=== PATIENT | female | born 1960 | race Caucasian/White ===

== ENCOUNTER 2016-06-02 11:00 | Day surgery (SDC) | payer OTHER ==
[~2016-06-02 11:00] MED LIST: Lidocaine Topical 2% 30 mL Jelly ONE
== END 2016-06-02 23:59 | disposition home or self-care (01) ==
LOC: END 11:00
PROVIDERS: ATTEND Surgery
DX: K21.9 Gastro-esophageal reflux disease without esophagitis (principal)

== ENCOUNTER 2016-10-06 05:39 | Day surgery (SDC) | payer OTHER ==
[~2016-10-06] VITALS: Ht 167.6 cm; Wt 66.1 kg
[2016-10-06] VITALS (16 sets, daily range): BP systolic 117–176; BP diastolic 60–96; PULSE 72–105; RESP 14–20; O2SAT 94–99
[~2016-10-06 05:39] MED LIST changes: +ALBU8.5H2 INHALATION; +CeFAZolin 2 Gm/50 mL D5W IV Premix IV SCH; +DIAZ2TAB2 PO; +DIAZ5TAB3 PO; +ESTR1TAB24 PO; +HYDR12.55 PO; -Lidocaine Topical 2% 30 mL Jelly ONE; +MTC5T PO; +NICO1PAT40 TD; +OMEP20TA86 PO; +ONDA-53 PO; +OXYC20TA4 PO; +OXYC80TA PO; +RANI150C4 PO
[2016-10-06] MEDS ORDERED: Remifentanil 1 mg/3 mL Inj ONE (05:40)
[2016-10-06] MEDS ORDERED: Succinylcholine Chloride 20 mg/mL 5 mL Inj ONE (05:40)
[2016-10-06] MEDS ORDERED: HYDROmorphone 1 mg/mL Inj ONE (05:40)
[2016-10-06] MEDS ORDERED: MetoCLOpramide 5 mg/mL 2 mL Inj ONE (05:40)
[2016-10-06] MEDS ORDERED: Propofol 10,000 mCg/mL 20 mL Inj ONE (05:40)
[2016-10-06] MEDS ORDERED: Rocuronium 10 mg/mL 5 mL Inj ONE (05:40)
[2016-10-06] MEDS ORDERED: Ketamine 10 mg/mL 20 mL Inj ONE (05:40)
[2016-10-06] MEDS ORDERED: Dexamethasone 4 mg/mL Inj ONE (05:40)
[2016-10-06] MEDS ORDERED: fentaNYL-PF 50 mCg/mL 2 mL Inj ONE (05:40)
[2016-10-06] MEDS ORDERED: Phenylephrine/NS 100 mCg/mL 10 mL Syringe IVPUSH ONE (05:40)
[2016-10-06] MEDS: Lactated Ringer's 1,000 ML IV SCH ×2 (05:53→07:30)
[2016-10-06] MEDS: CeFAZolin 2 Gm/50 mL D5W IV Premix IV SCH ×2 (06:00→07:58)
[2016-10-06] MEDS ORDERED: Bupivacaine-MPF 0.5% 30 mL Inj INFILTRATE ONE (07:31)
[2016-10-06] MEDS ORDERED: Lactated Ringer's 500 ML IV PRN (08:29)
[2016-10-06] MEDS ORDERED: Lactated Ringer's 1,000 ML IV SCH (08:29)
--- NOTE | 2016-10-06 08:29 | PCM.HPANE ---
Patient Data Surgeon Admitting Provider: Attending Provider:Adri Moya MD Primary Care Physician:Yusef Sheffield MD Other Provider:[facility] Anesthesia Reason for Visit GERD Ht/WT & BMI Height (Feet): 5 Height (Inches): 6 Weight (Kilograms): 67.3 Body Mass Index 23.00 Allergies Coded Allergies: Contrast Media (Unverified Allergy, Unknown, 10/04/16) ENTERED FROM UNCODED ALLERGIES bupropion (Verified Allergy, Unknown, 09/28/16) codeine (Verified Allergy, Unknown, 09/28/16) epinephrine (Unverified Allergy, Unknown, 10/04/16) ENTERED FROM UNCODED ALLERGIES naproxen (Verified Allergy, Unknown, seizures, 09/28/16) Uncoded Allergies: EPINEPHRINE (Allergy, Unknown, seizures, 09/28/16) IV CONTRAST IODINE (Allergy, Unknown, seizures, 09/28/16) Past Anesthesia History Anesthesia History: Positive for:: Anesthesia Reactions (relaxation med did not work- could not breathe- fought intubation), Denies:: Abnormal Airway, Difficult Intubation, Fam Anesthesia Reaction Diabetes History Hx Diabetes?: No MRSA MRSA: No Medications Hypertension Medication: No Home Meds Incl Beta John: No Reported Medications Ranitidine 150 Mg [id number] Mg PO BID Ref 0 09/28/16 Albuterol HFA (Proair HFA)8.5 Gm Hfa.aer.ad2 Puffs INHALATION Q4H PRN For Shortness of Breath #1 INHALER 09/28/16 Ondansetron 4 Mg Tablet8 Mg PO Q12H PRN For Nausea 09/28/16 Omeprazole 20 Mg Tablet.dr20 Mg PO DAILY 09/28/16 Nicotine (Nicoderm Cq 14 mg/24 hr)1 Each Patch.td241 Each TD DAILY 14 Days Ref 0 09/28/16 Metoclopramide 5 Mg Tablet5 Mg PO BID Ref 0 09/28/16 Hydrochlorothiazide 12.5 Mg Lwtoid39.5 Mg PO DAILY 30 Days Ref 0 09/28/16 Estradiol 1 Mg Tablet1 Mg PO DAILY Ref 0 09/28/16 Diazepam 5 Mg Tablet5 Mg PO BID PRN For Anxiety Ref 0 09/28/16 oxyCODONE 20 Mg Mafgna47 Mg PO BID PRN For Pain Ref 0 pt takes approx 60mg daily 09/28/16 Oxycodone ER (Oxycontin)80 Mg Tab.er.12h80 Mg PO TID pt takes approx 240mg daily 09/28/16 Discontinued Reported Medications Omeprazole 20 Mg Tablet.dr20 Mg PO DAILY 09/28/16 Diazepam 2 Mg Tablet2 Mg PO TID PRN For Anxiety Ref 0 09/28/16 History History of ENT Problems?: Yes HEENT History: Positive for:: Hearing Problem Sinus Problem (remote hx of right sided abscess with sinus collapse) Denies:: Abnormal Airway Cataracts Difficult Intubation Dysphagia Glaucoma Denture Type: Partial- Upper Teeth Condition: Within Normal Limits Hx of Heart Problems?: Yes Cardiovascular History: Positive for:: Heart Murmur (hx of murmur "for many years- no one has worked up") Irregular Heartbeat (anxious ) Denies:: Abdominal Aortic Aneurism Atrial Fibrillation Chest Pain Coronary Artery Disease Edema Hypertension Hx of Respiratory Problem?: Yes Respiratory History: Positive for:: Asthma COPD Dyspnea (short of breath- cannot climb stairs - ) Use of Inhalers / NEBS Denies:: Emphysema Oxygen Administration Pneumonia Tuberculosis Use of C-PAP Machine Hx Neurologic Problems?: Yes Neurological History: Positive for:: Headaches (daily ) Denies:: CVA Multiple Sclerosis Parkinson's Disease Seizures (had convulsions with epinephrine) Hx of GI Problems?: Yes Hx of Problems?: Yes Genitourinary History: Denies:: Kidney Stones Urinary Tract Infection Other Pertinent History: hx of defect- needed ureteroscopy with stents Female Hx: Positive for:: Problems with Breasts? (breast biopsy, lumpectomy- benign) Denies:: Currently Skin History: Denies:: History Skin Disorders? Pressure Ulcers Hx Musculoskeletal Problems?: Yes Musculoskeletal History: Positive for:: Back Injury (hx of lumbar spinal surgery x 6 ) Fibromyalgia Osteoarthritis Denies:: Degenerative Joint Joint Replacement Myasthenia Gravis Hx of Psycho/Social Problems?: Yes Psycho Social History: Positive for:: Anxiety Hx Surgeries?: Yes (multiple orthopedic, spinal, lap wally, appe, hyst) Hx Any Other Health Problems?: Yes Other History: Denies:: Cancer Thyroid Disease History Blood Transfusions: Positive for:: Accept Blood Products? Denies:: Blood Transfusions Hx Diabetes: No Hx Alcohol Use: NoHx Substance Use: NoHave You Smoked inLast 12 mo: Yes ( recent quit- 2 pack day at highest, wearing nicotine patch) Stop/Bang S-Snoring: Do You Snore Loudly: No T-Tired: feel tired, fatigued: No O-Obsered: Observed not breath: No P-Blood Pressure: treated: No B- Body Mass Index > 35 kg/m2: No A- Age over 50: Yes N- Neck Large Circumference: No G- Gender Male: No JAYSON Total Score: 1 JAYSON Risk Assessment: Low Risk, <3 Yes Risk Assessment Category Category 1A: Patient has history of documented sleep apnea, and HAS NOT received any narcotic, sedative or anesthesia administration during this stay. Category 1B: Patient has history of documented sleep apnea, and HAS received any narcotic , sedative or anesthesia administration during this stay Category 2: Patient has SUSPECTED Obstructive Sleep Apnea, and HAS received any narcotic , sedative or anesthesia administration during this stay. Category 3: Patient has SUSPECTED Obstructive Sleep Apnea and HAS NOT received narcotic, sedative or anesthesia administration during this stay. Category 4: Outpatient in Procedural Areas with known sleep apnea or who screen positive for High Risk via the STOP/BANG questionnaire. Exam Exam Vital Signs Vital Signs Date Time Temp Pulse Resp B/P Pulse Ox O2 Delivery O2 Flow Rate FiO2 10/06/16 06:07 36 76 16 117/67 95 Room Air General Appearance: Alert HEENT/AIRWAY: MP 2, Neck Movement (from, 3 fb) Lungs: Clear to Auscultation Heart: Regular Rate/Rhythm Meds/Labs/Diagnostics Admission Meds Current Medications Lactated Ringer's 1,000 ml @ 120 mls/hr Q8H20M IV Last administered on 07:30; Start 10/06/16 at 05:00; Stop 10/06/16 at 13:19 Cefazolin Sodium/ Dextrose/Premix (Ancef Inj/IV Premix) 50 ml @ 100 mls/hr PREOP IV Last administered on 10/06/16 07:58; Start 10/06/16 at 06:00; Stop at 17:00 Bupivacaine HCl (Sensorcaine-MPF 0.5% Inj) 30 ml STK-MED ONCE INFILTRATE Last administered on 10/06/16 07:31; Start 10/06/16 at 07:31; Stop 10/06/16 at 08:15 ; Status DC Plan Impression Patient chart reviewed, patient interviewed and anesthestic plan with risks, benefits, and alternatives discussed, and informed consent obtained. NPO per Anesth. Guidelines: Yes ASA Physical Status: ASA3 Severe Disease Anesthetic Plan: GA Bene/Risks/Altern/Consents: Yes HP Complete Prior to Induction: Yes Other Discussed GETA. Discussed likely difficulty with post-op pain control given her current opioid usage. All questions were answered and she agrees to proceed. Stanley Valdez MD Oct 06, 2016 08:29
[2016-10-06] MEDS ORDERED: Phenylephrine 10,000 mCg/mL Inj IVPUSH PRN (08:30)
[2016-10-06] MEDS ORDERED: Dexamethasone 4 mg/mL Inj IVPUSH PRN (08:30)
[2016-10-06] MEDS ORDERED: EPHEDrine Sulfate 50 mg/mL Inj IVPUSH PRN (08:30)
[2016-10-06] MEDS ORDERED: MetoCLOpramide 5 mg/mL 2 mL Inj IVPUSH PRN ×2 (08:30→10:55)
[2016-10-06] MEDS ORDERED: Ondansetron 2 mg/mL 2 mL Inj IVPUSH PRN ×2 (08:30→10:55)
[2016-10-06] MEDS ORDERED: ProchlorPERazine 5 mg/mL 2 mL Inj IVPUSH PRN (10:55)
[2016-10-06] MEDS ORDERED: oxyCODONE 1 mg/mL 5 mL Liquid PO PRN (10:55)
--- NOTE | 2016-10-06 10:56 | PCM.SURGOP ---
Surgical Operative Report Date of Service: Oct 06, 2016 Pre Operative Diagnosis Hiatal hernia associated with gastroesophageal reflux disease Post Operative Diagnosis Hiatal hernia associated with gastroesophageal reflux disease Procedure: Laparoscopic hiatal hernia repair with Toupet fundoplication Surgeon and Elementary Spanish Teacher: Surgeon: Adri Moya MD Assistants: Marcellus Albarado M.D. R3; Sapphire [place], MS3 Indication for Procedure This is a 56-year-old woman who presented with symptoms of acid brash, nausea, and epigastric discomfort. I first met her she was taking large doses of OxyContin and oxycodone for fibromyalgia. Initial workup included a gastric emptying study to rule out gastroparesis. She then underwent a full workup which demonstrated severe reflux including a DeMeester score of 51, normal esophageal motility, a small hiatal hernia, without other pathology identified on endoscopy. Findings: 1. Small hiatal hernia 2. 270 posterior fundoplication Procedure Details The patient was brought to the operating room and placed in supine position. General endotracheal anesthesia was smoothly induced. A warming blanket and SCDs were placed. The patient was repositioned into low lithotomy with the left arm tucked. Antibiotics were infused. The operative field was prepped and draped in sterile fashion. A pause was performed to confirm the correct patient, procedure, and site. The abdomen was accessed using a Veress needle in the left upper quadrant after controlling the fascia and was insufflated. An 11 mm Optiview port was inserted and intraperitoneal insufflation began. A 5 mm port was then placed in the mid abdomen just to the left of midline. The 5 mm port was placed in the mid abdomen laterally on the left. A 5 mm flexible liver retractor was placed through a 5 mm port in the right lateral abdomen. A final 5mm trocar was placed in the right upper quadrant. A small hiatal hernia was seen. The stomach was identified and the phrenogastric ligament was taken down sharply. The short gastrics were then taken down using LigaSure device. After this portion of the procedure, the small amount of oozing was identified near the superior tip of the spleen. A piece of Surgicel was placed in that location and it was carefully observed for several minutes. It was hemostatic throughout the rest of the case. Dissection proceeded at the hiatus starting on the left. The mediastinum was entered on the left. Both vagi were identified and preserved. The gastrohepatic ligament was then divided up to the right uriel and the right sided dissection was completed with care taken to preserve the entire uriel. Once the esophagus was dissected circumferentially, the hiatal hernia was reduced and a Linda drain was then placed around the esophagus at the gastroesophageal junction for retraction to facilitate a more proximal esophageal dissection. This proceeded proximally until there was 5 cm of intra- abdominal esophagus. 3 interrupted 2-0 silk stitches were placed in the posterior crura to reapproximate them without tension. Attention was turned to the to Toupet fundoplication. A Toupet was chosen due to data demonstrating that it is equivalent for postoperative reflux but improves postoperative dysphagia and gas bloat, and the risk of bougie placement is avoided. A marking stitch was placed on the posterior fundus, 3 cm distal to the gastroesophageal junction and 2 cm posterior to the greater curvature. This was brought around posteriorly to align the geometry of the fundoplication. The first stitch was placed in the fundus just proximal to the marking stitch, to the esophagus at and 11 o'clock position, and to the right uriel at the 11 o'clock position. The second stitch was placed from the posterior aspect of the right fundoplication to the bilateral crura posteriorly. The [place] drain was removed. Two additional stitches were then placed from the right side of the fundoplication to an 11 o'clock position on the esophagus. Care was taken to avoid inclusion of the anterior vagus in the stitches. The marking stitch was removed. Attention was then turned to the left side of the wrap. An appropriate position on the fundus was chosen to create symmetrical geometry of the fundoplication. The first stitch on the left was placed from the wrap to the esophagus to the uriel, again with care taken to avoid inclusion of the anterior vagus in the stitch. Two additional sutures were then placed from the wrap to the esophagus, each 1 cm distal to the previous one. A final coronal stitch was placed from the left posterior fundoplication to the posterior aspect of the left uriel. Once the procedure was complete, the 11 mm port site in the left mid abdomen was closed with an interrupted 2-0 PDS using a fascial closure device. The remaining ports were removed under direct vision and the abdomen was desufflated. 0.5% Marcaine with epinephrine was infused at all port sites. Skin was closed with 4-0 Monocryl. Sterile dressings were placed. All sponge, instrument, and needle counts were correct at the end of the procedure. The patient was awakened from general anesthesia and taken to the postoperative care unit in good condition. Complications There were no periprocedural complications identified. Surgical Specimen Removed: No Specimen sent to Pathology: No Anesthetic Plan: GA Grafts, Implants: None Output, Estimated Blood Loss: 10 (ml) Blood Administration during pratt: No Adri Moya MD Oct 06, 2016 10:56
[2016-10-06 11:30] LABS: Mean Corpuscular Hemoglobin 30.2 pg (27.0-35.0); Mean Corpuscular Volume 88.9 fL (81-100)
[2016-10-06] MEDS: fentaNYL-PF 50 mCg/mL 2 mL Inj IVPUSH PRN ×2 (11:31→11:48)
--- NOTE | 2016-10-06 11:54 | PCM.ANEP1 ---
Post Anesthesia PACU Phase 1 Assessment Vital Signs Vital Signs Date Time Temp Pulse Resp B/P Pulse Ox O2 Delivery O2 Flow Rate FiO2 10/06/16 11:49 85 17 148/68 98 Nasal Cannula 3 10/06/16 11:30 84 14 150/76 96 Nasal Cannula 4 10/06/16 11:20 81 16 147/72 98 Nasal Cannula 4 10/06/16 11:05 91 15 145/67 98 Nasal Cannula 4 10/06/16 11:00 92 16 167/81 99 Simple Mask 8 10/06/16 10:55 85 15 163/77 99 Simple Mask 8 10/06/16 10:50 36.7 94 15 171/81 99 Simple Mask 8 10/06/16 06:07 36 76 16 117/67 95 Room Air Anesthetic Administered: GA Level of Alertness: Awake, talking DE LEON's with Equal Strength: Yes Pain: Yes Nausea or Vomiting: No CV Function & Hydration Stable: Yes Airway Device: Oxygen Delivery: Simple Mask Lungs: Clear to Auscultation Dermatome Level: Full Sensation PACU Phase 2 Assessment Complications: No Follow up Care: N/A Patient Instructions Provided: N/A Stanley Valdez MD Oct 06, 2016 11:54
[2016-10-06] MEDS: HYDROmorphone 1 mg/mL Inj IVPUSH PRN ×4 (11:57→23:37)
[2016-10-06] MEDS: Acetaminophen 32.5 mg/mL 20 mL Liquid PO SCH ×2 (12:00→17:29)
[2016-10-06] MEDS ORDERED: Albuterol 2.5 mg/3 mL Inhalation Solution NEB PRN (12:50)
[2016-10-06] MEDS: Dextrose 5% Lactated Ringer's 1,000 ML IV SCH (13:11)
[2016-10-06] MEDS: oxyCODONE ER 40 mg ER12 Tablet PO SCH ×2 (15:15→20:13)
[2016-10-06] MEDS: Heparin 5,000 Unit/mL Inj SUBQ SCH (18:11)
[2016-10-07] MEDS: Dextrose 5% Lactated Ringer's 1,000 ML IV SCH ×2 (01:43→11:55)
[2016-10-07] MEDS: Heparin 5,000 Unit/mL Inj SUBQ SCH ×2 (02:06→08:24)
[2016-10-07] MEDS: HYDROmorphone 1 mg/mL Inj IVPUSH PRN ×2 (03:07→08:28)
[2016-10-07 04:46] VITALS: BP 177/77; PULSE 72; RESP 18; O2SAT 95
[2016-10-07] MEDS: oxyCODONE ER 40 mg ER12 Tablet PO SCH ×2 (05:34→13:34)
[2016-10-07] MEDS: Acetaminophen 32.5 mg/mL 20 mL Liquid PO SCH ×3 (06:00→12:00)
[2016-10-07 06:10] LABS: Mean Corpuscular Volume 88.7 fL (81-100)
--- NOTE | 2016-10-07 06:17 | NUR ---
Activity/FC Pt has has c/o pain this shift to her abdomen 6 to 9 out of 10. Pt receiving PO OxyContin ER -whole, Oxycodone PO crushed, and IV Dilaudid to help alleviate pain. Pt gets anxious and tearful when pain levels are 9 out of 10. Encouraging pt to move in bed and to get OOB this morning to help relieve some of her gas/cramping pressure. FC removed at 0610 this morning. Pt tolerated very well, and happy to have it out. Reminded pt to drink fluids and the need to increase her mobility. 5 lap sites are intact, very minimal spotting. Abdomen is round and soft to palpation, bowel tones are present in all 4 quads. Wheezing lung sounds to right lung this morning, pt had been tearful prior to assessment.
--- NOTE | 2016-10-07 08:01 | PCM.PNSURG ---
Subjective Date of Service: Oct 07, 2016 Visit Information: Reason for Visit GERD Surgery/Surgery Date HERNIA REPAIR 10/06/16 Post-Op Day # Date of Admission: Hospital Day # Subjective: Patient is resting comfortably in bed. She states that she has been ambulating independently and is voiding. She is tolerating liquids. Her pain is controlled. Postop General: No Complaints Gastrointestinal: No N/V Pain Management: PO, IV Push Objective Objective Abdomen is soft, nondistended, appropriately tender. Her incisional sites are without erythema but with a small amount of bloody oozing that has stopped. Vital Sign- Last 8 Hours Date Time Temp Pulse Resp B/P Pulse Ox O2 Delivery O2 Flow Rate FiO2 10/07/16 06:06 Supplement Oxygen 10/07/16 04:46 36.6 72 18 177/77 95 Nasal Cannula 1.00 Intake and Output- Last 8 Hour 10/07/16 Cumulative From/Thru 07:00 09/28/16 14:47 - 10/07/16 05:40 Intake Total 650 ml 3220 ml Output Total 2100 ml 4320 ml Balance -1450 ml -1100 ml Intake Oral 650 ml 1268 ml IV Total 1952 ml Output Urine Total 2100 ml 4300 ml Estimated Blood Loss 20 ml # Voids 0 # Bowel Movements 0 0 General: Alert, Oriented X3, Cooperative Neck: Full Range of Motion Lungs: Normal Air Movement Heart: Exam Unremarkable Abdomen: Soft, Appropriately tender Result Diagram: 10/07/16 0520 10/07/16 0520 Assessment & Plan Impression Postop day 1 status post Laparoscopic hiatal hernia repair with Toupet fundoplication-convalescing appropriately -Advance diet to full liquids -Ensure that all medications are crushed or given as elixir form except for home OxyContin -Check in with the patient around noon, if she has no nausea or vomiting or difficulty swallowing, anticipate discharge this afternoon. I examined this patient and I agree with the note as dictated above. Adri Moya MD Problems: Norman Bobby DO Oct 07, 2016 08:01 Adri Moya MD Oct 07, 2016 16:38
[2016-10-07 09:07] VITALS: BP 138/79; PULSE 69; RESP 16; O2SAT 92
[2016-10-07 09:16] VITALS: PULSE 65; RESP 18; O2SAT 92
--- NOTE | 2016-10-07 12:23 | PCM.DICHF ---
CHF Discharge Instructions Dates of Hospitalization Date of Hospital Admission Providers Admitting Physician: Primary Care Physician: Yusef Sheffield MD Attending Physician: Adri Moya MD Diagnosis at Time of Discharge Labs Ejection Fraction Laboratory Tests Test Range/Units 10/07/16 05:20 Sodium Level 134-144 mEq/L 140 Potassium Level 3.5-5.2 mEq/L 3.5 Chloride Level 97-108 mEq/L 103 Carbon Dioxide Level 18-29 mmol/L 24 Blood Urea Nitrogen 6-24 mg/dL 5 Creatinine 0.57-1.00 mg/dL 0.54 Estimat Glomerular Filtration Rate >59 mL/min 167 Glucose Level 60-99 mg/dL 98 Calcium Level 8.5-10.1 mg/dL 9.3 Discharge Medications Other Medication Instructions You have received instructions on the medications your physician has prescribed at discharge. A list of these medications has been provided to you. Keep this and a list of all current medications with you. Keep the dates when you received the Flu and Pneumococcal (Pneumonia) Vaccines. Last known date of receiving Flu Vaccine 11/2015 Last known date of receiving Pneumococcal (Pneumonia) Vaccine Diet Diet Instructions CHF Low Salt diet ( 2 grams or less sodium/day) Choose foods and drinks with low or no salt. Remove salt shaker from the table. Read Nutritional Facts labels. Weight Monitoring 1. Weigh yourself every day at the same time and write it down. 2. Take your weight log to your doctor visits. 3. Call your doctor if you gain 3-5 pounds over 2-3 days. 4. Your weight today is 145.72 lbs. Additional Instructions Smoking--Tobacco Use If you smoke, you are strongly encouraged to stop. If you have recently quit smoking, CONGRATULATIONS. For further information to stop smoking or to remain smoke-free, Report or call your Doctor REPORT TO YOUR DOCTOR OR SEEK MEDICAL ATTENTION: *Shortness of breath or have more difficulty breathing. *Swelling of your feet, ankles, hands or abdomen. *Feeling tired with normal activity or experiencing dizziness or fainting. *Trouble sleeping or waking up feeling short of breath or coughing. *Chest pain or pressure. *Weight gain of 3-5 pounds over 2-3 days. *Inability to take medications or follow treatment plan Heart Attach warning signs HEART ATTACK WARNING SIGNS * Chest discomfort. *Discomfort or pain in one or both arms, back, neck, jaw or stomach. *Shortness of breath. *Breaking out in a cold sweat, nausea, or lightheadedness. If you're having heart attack warning signs: CALL . DON'T WAIT MORE THAN A FEW MINUTES - 5 MINUTES AT MOST - TO CALL . Brandt Rodriguez PA-C Oct 07, 2016 12:23
--- NOTE | 2016-10-07 12:53 | PCM.DISURG ---
Surgical Discharge Instruction Date of Service Oct 07, 2016 Dates of Hospitalization Date of Hospital Admission Providers Admitting Physician: Primary Care Physician: Yusef Sheffield MD Attending Physician: Adri Moya MD Discharge Diagnosis Discharge Diagnosis Primary Diagnoses: 1. Hiatal hernia associated with gastroesophageal reflux disease 2. Status post laparoscopic hiatal hernia repair with Toupet fundoplication Other Medical & Surgical History: Allergic rhinitis Anxiety History of endoscopy Family history of diabetes Family history of ovarian cancer Fibromyalgia Migraine headaches Lumbar spinal stenosis Osteoarthritis History of multiple lumbar surgeries Menopausal syndrome History of colonoscopy History of shoulder impingement syndrome History of chronic narcotic pain medication Possible chronic pain syndrome Post Operative diagnosis Same as above Diet Discharge Diet: Other (full liquid diet for 2 weeks) Activity Discharge Activity-General: Balance rest and activity, No lifting >15 pounds for 2 weeks, Other (Try to walk regularly do not overdo.) Dressing and Incisional Care Dressing Care: Allow Steri Stripes to fall off (on their own & remove in 1 weeks) Hygiene: May shower, DO NOT soak incision under water Additional Instructions Discharge Instructions Precautions to avoid nausea &/or vomiting Additional Instructions 1. Crush oxycodone in applesauce for breakthrough pain. 2. Do not crush OxyContin. 3. Take other pills in liquid form or crush. Follow Up Plan Follow-up Provider (F9): Adri Moya MD Follow-up appointment: Weeks (2) Call your provider for: Fever, Chills, Shortness of breath, Increasing abdominal pain, Nausea, Vomiting, Wound redness, Increasing wound pain, Warmth to touch, Discharge @ incision, pus discharge Brandt Rodriguez PA-C Oct 07, 2016 12:53
--- NOTE | 2016-10-07 13:01 | NUR ---
NUTRITION CONSULT Diet education completed following reapir of hiatal hernia with toupet fundoplication. Reviewed full liquid diet with pt and SO in detail. Hdts provided.
[2016-10-07 13:07] VITALS: BP 143/80; PULSE 80; RESP 18; O2SAT 95
[2016-10-07] MEDS ORDERED: OXYC-474 PO (13:19)
[2016-10-07] MEDS ORDERED: ONDA8TAB7 PO (13:21)
--- NOTE | 2016-10-07 13:25 | PCM.DC.SUR ---
Discharge Summary Date of Service: Oct 07, 2016 Date of Hospital Admission: 10/06/2016 Date of Operation(s): 10/06/2016 Date of Discharge: 10/07/2016 Diagnosis at Time of Discharge Primary Diagnoses: 1. Hiatal hernia associated with gastroesophageal reflux disease 2. Status post laparoscopic hiatal hernia repair with Toupet fundoplication Other Medical & Surgical History: Allergic rhinitis Anxiety History of endoscopy Family history of diabetes Family history of ovarian cancer Fibromyalgia Migraine headaches Lumbar spinal stenosis Osteoarthritis History of multiple lumbar surgeries Menopausal syndrome History of colonoscopy History of shoulder impingement syndrome History of chronic narcotic pain medication Possible chronic pain syndrome Problems: Operation Laparoscopic hiatal hernia repair with Toupet fundoplication Brief History and Physical: This is a 56-year-old woman who I have met twice before with gastroesophageal reflux disease. Recall that she has a history of BMI 22.7, on 240 mg daily of OxyContin and 61 g daily of oxycodone for fibromyalgia, who presented to my office back in March for consultation. Her primary symptoms are acid brash, nausea, and epigastric discomfort. Full workup revealed severe reflux including DeMeester score of 51.2 with 248 episodes of reflux, with significant worsening of her symptoms when she was off omeprazole. She has a small hiatal hernia with normal esophageal peristalsis. Because of nausea and her narcotic use aorta to gastric imaging study which was normal. When Dr. Moya & the patient last met back in May, Dr. Moya asked her to stop smoking prior to scheduling surgery. She has been off of cigarettes for 16 days. She is with her partner today, who is still smoking but is also about to quit. Past medical history includes headaches, anxiety, fibromyalgia, and hypertension ; past surgical history upper abdomen includes a laparoscopic cholecystectomy, open appendectomy, open hysterectomy. She has also had a bilateral first rib resection, carpal tunnel release, and [address] Moya and the patient discussed all the risks and benefits associated with the above discussed procedure including but not limited to reasonable expectations with regards to surgical outcomes & the patient elected to proceed with surgery as planned. Hospital Course: The patient was admitted with a history, presentation, and workup consistent with the above listed primary diagnosis and underwent the above-mentioned surgical procedure without complication. See operative report for details of the procedure. After surgery the patient convalesced appropriately. The postsurgical recovery was uneventful. The patient was stable for discharge on postoperative day #1. At the time of discharge the patient was voiding without difficulty, exhibiting signs of normal bowel function including but not limited to passing flatus, and tolerating a full liquid diet without nausea or vomiting. The patient's chronic pain & additional surgery related pain was appropriately controlled with her longer acting baseline OxyContin & crushed oxycodone for severe breakthrough. She was ambulating without difficulty, with clean, dry, & intact surgical wounds without signs of significant infection, inflammation, and her hematoma. We discussed all the related postoperative care , medication, & follow-up instructions including but not limited to when to seek immediate medical attention. The patient verbalized understanding of the instructions and indicated that all her questions were answered. In addition to a written copy of her instructions prescriptions were given for additional oxycodone to be crushed and taken with her full liquids along with oral disintegrating antiemetic taps. Disposition: Home in stable condition on postoperative day #1 Follow-up Plan: Follow-up with Dr. Moya in outpatient general surgery clinic in 2 weeks for wound check and reevaluation. Albuterol HFA (Proair HFA) 8.5 Gm Hfa.aer.ad 2 PUFFS INHALATION Q4H PRN PRN For Shortness of Breath (Reported) Diazepam (Diazepam) 5 Mg Tablet 5 MG PO BID PRN PRN For Anxiety (Reported) Estradiol (Estradiol) 1 Mg Tablet 1 MG PO DAILY (Reported) Hydrochlorothiazide (Hydrochlorothiazide) 12.5 Mg Tablet 12.5 MG PO DAILY ( Reported) Metoclopramide (Metoclopramide) 5 Mg Tablet 5 MG PO BID (Reported) Nicotine (Nicoderm Cq 14 mg/24 hr) 1 Each Patch.td24 1 EACH TD DAILY (Reported) Omeprazole (Omeprazole) 20 Mg Tablet.dr 20 MG PO DAILY (Reported) Ondansetron (Ondansetron) 4 Mg Tablet 8 MG PO Q12H PRN PRN For Nausea (Reported ) Ondansetron ODT (Zofran ODT) 8 Mg Tablet 8 MG PO TID PRN PRN For Nausea Oxycodone (Roxicodone) 5 Mg Tablet 10 MG PO QID PRN PRN For Severe Pain DO NOT TAKE WITH VALIUM/DIAZEPAM. Oxycodone ER (Oxycontin) 80 Mg Tab.er.12h 80 MG PO TID (Reported) pt takes approx 240mg daily Ranitidine (Ranitidine) 150 Mg Capsule 150 MG PO BID (Reported) oxyCODONE (oxyCODONE) 20 Mg Tablet 20 MG PO BID PRN PRN For Pain (Reported) pt takes approx 60mg daily Discharge Medications: Prescriptions given for oxycodone 10mg tabs to be crushed and taken with full liquids along with oral disintegrating antiemetics both as needed. copies to: Yusef Sheffield MD, Scott PA-C Oct 07, 2016 13:25
[2016-10-07] MEDS ORDERED: OXYC10TA8 PO (13:44)
--- NOTE | 2016-10-07 14:51 | NUR ---
Discharge Orders for discharge were received. The patient was made aware of the plan to discharge and was agreeable to go. The patient tolerated her lunch tray without difficultly, denying any increase in pain or nausea after her meal. Patient able to void post kay catheter removal, removed prior to this shift. The patient was given information regarding her diagnosis and treatment, signs and symptoms to be aware of, follow up instructions, information, teaching and physical handouts on new medications, as well as specific teaching regarding her diet and which medications are to be crushed and not to be crushed. The patient signified understanding of this information, verified using the teach back method. The patient's asymptomatic IV was then removed and the patient was dressed in her own clothing with her belongings gathered. The patient denies any belongings in the hospital safe or pharmacy. The patient then ambulated to the main entrance with her at patient side. At the time of discharge the patient was alert and oriented, with no complaint of out of control pain, nausea, chest pain, shortness of breath or other difficulty.
== END 2016-10-07 14:10 | disposition home or self-care (01) ==
LOC: SAS 05:39 → OSC 13:06 → SAS 10-07 14:10
PROVIDERS: ATTEND Surgery
DX: K44.9 Diaphragmatic hernia without obstruction or gangrene (principal); K21.9 Gastro-esophageal reflux disease without esophagitis; G89.18 Other acute postprocedural pain; I10 Essential (primary) hypertension; F41.9 Anxiety disorder, unspecified; M48.06 Spinal stenosis, lumbar region; J45.909 Unspecified asthma, uncomplicated; J44.9 Chronic obstructive pulmonary disease, unspecified; M19.90 Unspecified osteoarthritis, unspecified site; M79.7 Fibromyalgia; Z79.891 Long term (current) use of opiate analgesic; Z87.891 Personal history of nicotine dependence; Z90.710 Acquired absence of both cervix and uterus; Z86.69 Personal history of other diseases of the nervous system and sense organs; Z79.890 Hormone replacement therapy
CPT/HCPCS: 36415; 43281; 80048; 85027; 94640; 94799; 96372; 96374; 96376; J0330; J0690; J1100; J1170; J1644; J2250; J2370; J2704; J2765; J3010; J7120